=== PATIENT | female | born 1945 | race Caucasian/White ===

== ENCOUNTER → 2017-07-27 | Outpatient (CLI) | payer MEDICARE, OTHER | END | disposition home or self-care (01) | LOC: MAMMO 08:02 | DX: Z12.31 Encounter for screening mammogram for malignant neoplasm of breast (principal) | CPT/HCPCS: 77067 ==

== ENCOUNTER → 2017-08-07 | Outpatient (CLI) | payer MEDICARE, OTHER ==
[2017-08-07 09:31] LABS: ADD MAN DIFF? NO
[2017-08-07 09:37] LABS: BASO % 1 % (0-3); EOS # 0.2 x10^3/uL (0.0-0.7); EOS % 4 % (0-3); HEMATOCRIT 36.7 % (36.0-47.0); HEMOGLOBIN 12.1 g/dL (12.0-15.5); LYMPH # 0.8 x10^3/uL (1.0-4.8); LYMPH % 23 % (24-48); MEAN CORPUSCULAR HEMOGLOBIN 31 pg (25-35); MEAN CORPUSCULAR HGB CONC 33 g/dL (31-37); MEAN CORPUSCULAR VOLUME 96 fL (79-100); MONO # 0.4 x10^3/uL (0.0-1.1); MONO % 12 % (0-9); NEUT # 2.3 x10^3uL (1.8-7.7); NEUT % 61 % (31-73); PLATELET COUNT 174 x10^3/uL (140-400); RED BLOOD COUNT 3.84 x10^6/uL (3.50-5.40); RED CELL DISTRIBUTION WIDTH 14.2 % (11.5-14.5); WHITE BLOOD COUNT 3.7 x10^3/uL (4.0-11.0)
[2017-08-07 09:48] LABS: ALBUMIN 3.5 g/dL (3.4-5.0); ANION GAP 4 (6-14); BLOOD UREA NITROGEN 23 mg/dL (7-20); CARBON DIOXIDE 30 mmol/L (21-32); CHLORIDE 106 mmol/L (98-107); CREATININE 0.6 mg/dL (0.6-1.0); GFR 98.5; GLUCOSE 82 mg/dL (70-99); POTASSIUM 4.7 mmol/L (3.5-5.1); SODIUM 140 mmol/L (136-145)
[2017-08-07 09:51] LABS: AMORPHOUS SEDIMENT,UR PRESENT /HPF; BACTERIA,URINE 0 /HPF (0-FEW); BILIRUBIN,URINE NEGATIVE (NEG); CLARITY,URINE CLOUDY; COLOR,URINE YELLOW; GLUCOSE,URINE NEGATIVE (NEG); NITRITE,URINE NEGATIVE (NEG); PARTIAL THROMBOPLASTIN TIME 25 SEC (24-38); PH,URINE 7.5; PROTEIN,URINE NEGATIVE (NEG-TRACE); PROTHROMBIN TIME PATIENT 12.4 SEC (11.7-14.0); RBC,URINE 0 /HPF (0-2); SQUAMOUS EPITHELIAL CELL,UR OCC /LPF; UROBILINOGEN,URINE 0.2 mg/dL (0.2 mg/dL); WBC,URINE 0 /HPF (0-4)
[2017-08-07 11:00] LABS: SEDIMENTATION RATE 18 (0-25)
[2017-08-08 00:12] LABS: MRSA BY PCR Negative (Negative)
== END | disposition home or self-care (01) ==
LOC: SURGPAT 13:58
DX: Z01.818 Encounter for other preprocedural examination (principal); I10 Essential (primary) hypertension
CPT/HCPCS: 36415; 71046; 80048; 81001; 82040; 82306; 85025; 85610; 85651; 85730; 87641; 93005

== ENCOUNTER 2017-08-22 05:33 | Inpatient (IN) | payer MEDICARE, OTHER ==
[2017-08-22] MEDS: MORPHINE SULFATE 5 MG, KETOROLAC 30 MG, ROPIVacaine 0.5% PF 60 ML, EPINEPHrine 0.5 MG i... INT ART (06:00)
[2017-08-22] MEDS ORDERED: HYDROcodone/APAP 7.5/325MG 1 TAB TABLET (06:25)
[2017-08-22] MEDS: IV RINGERS,LACTATED 1000ML 1,000 ML IV (06:34)
[2017-08-22] MEDS: HYDROcodone/APAP 7.5/325MG 1 TAB TABLET PO ×4 (06:40→23:03)
[2017-08-22 06:41] LABS: HEMATOCRIT 37.7 % (36.0-47.0); HEMOGLOBIN 12.4 g/dL (12.0-15.5); MEAN CORPUSCULAR HGB CONC 33 g/dL (31-37)
[2017-08-22] MEDS ORDERED: PROPOFOL 20 ML IV (06:51)
[2017-08-22] MEDS ORDERED: LIDOCAINE 2% PF Vial for OR 5 ML VIAL. (06:51)
[2017-08-22] MEDS ORDERED: fentaNYL PF VIAL 100 MCG/2 ML VIAL (06:51)
[2017-08-22] MEDS ORDERED: ONDANSETRON PF 4 MG/2 ML VIAL. (06:51)
[2017-08-22] MEDS ORDERED: DEXAMETHASONE SOD PHOS 20 MG/5 ML VIAL. (06:51)
[2017-08-22] MEDS ORDERED: ROCURONIUM 50 MG/5 ML VIAL. (06:51)
[2017-08-22] MEDS ORDERED: FAMOTIDINE 20 MG/2 ML VIAL (06:58)
[2017-08-22] MEDS ORDERED: HYDROmorphone 2 MG/ML VIAL IV (07:00)
[2017-08-22] MEDS ORDERED: fentaNYL PF VIAL 100 MCG/2 ML VIAL IV ×3 (07:00→10:00)
[2017-08-22] MEDS ORDERED: LIDOCAINE 1% PF 2 ML VIAL. ID (07:00)
[2017-08-22] MEDS ORDERED: ONDANSETRON PF 4 MG/2 ML VIAL. IV (07:00)
[2017-08-22] MEDS ORDERED: MIDAZOLAM HCL/PF 2 MG/2 ML VIAL. (07:14)
[2017-08-22] MEDS: TRANEXAMIC ACID 1,000 MG in IV NORMAL SALINE 50ML 50 ML INJ ×2 (08:00)
[2017-08-22] MEDS ORDERED: PHENYLEPHRINE in 0.9% NACL PF 1 MG/10 ML SYRINGE. IV (08:01)
[2017-08-22] MEDS ORDERED: ePHEDrine PF IN SALINE 50 MG/5 ML DISP.SYRIN IV (08:07)
[2017-08-22] MEDS: TOBRAMYCIN POWDER 1.2 GM VIAL. (08:19)
[2017-08-22] MEDS: VANCOMYCIN 1 GM VIAL. (08:19)
[2017-08-22] MEDS ORDERED: diphenhydrAMINE 50 MG/ML VIAL (08:49)
[2017-08-22] MEDS ORDERED: NEOSTIGMINE METHYLSULFATE 5 MG/5 ML SYRINGE. (09:08)
[2017-08-22] MEDS ORDERED: GLYCOPYRROLATE 1 MG/5 ML VIAL. (09:08)
[2017-08-22] MEDS ORDERED: SEVOFLURANE 61 TO 120 MINUTES. IH (09:31)
[2017-08-22] MEDS: PROCHLORPERAZINE 10 MG/2 ML VIAL. IV (09:58)
[2017-08-22] MEDS: fentaNYL PF VIAL 100 MCG/2 ML VIAL IV ×2 (09:59→10:10)
[2017-08-22] MEDS ORDERED: CALCIUM CARBONATE 500 MG TAB.CHEW PO (10:00)
[2017-08-22] MEDS ORDERED: HYDROcodone/APAP 10/325 1 TAB TABLET PO (10:00)
[2017-08-22] MEDS ORDERED: DEXTROSE 50% 25 GM / 50ML DISP.SYRIN. IV (10:00)
[2017-08-22] MEDS ORDERED: PROCHLORPERAZINE 10 MG/2 ML VIAL. IV (10:00)
[2017-08-22] MEDS ORDERED: PROCHLORPERAZINE 5 MG TABLET. PO (10:00)
[2017-08-22] MEDS ORDERED: oxyCODONE/APAP 5/325 1 TAB TABLET PO (10:00)
[2017-08-22] MEDS ORDERED: diphenhydrAMINE 50 MG/ML VIAL IV (10:00)
[2017-08-22] MEDS ORDERED: NON FORMULARY ITEM (Denosumab (Prolia) 60 MG) SQ (10:00)
[2017-08-22] MEDS ORDERED: MORPHINE SULFATE 2 MG/ML DISP.SYRIN. IV (10:00)
[2017-08-22] MEDS ORDERED: METOCLOPRAMIDE HCL 10 MG/2 ML VIAL. IV (10:00)
[2017-08-22] MEDS ORDERED: ZOLPIDEM 5 MG TABLET. PO (10:00)
[2017-08-22] MEDS ORDERED: MORPHINE SULFATE 4 MG/ML DISP.SYRIN. IV ×2 (10:00)
[2017-08-22] MEDS ORDERED: 0.9 % SODIUM CHLORIDE 10 ML DISP.SYRIN. IV (10:00)
[2017-08-22] MEDS ORDERED: ACETAMINOPHEN 325 MG TABLET. PO (10:00)
[2017-08-22] MEDS ORDERED: traMADol 50 MG TABLET PO ×2 (10:00)
[2017-08-22] MEDS ORDERED: oxyCODONE/APAP 7.5/325 1 TAB TABLET PO (10:00)
[2017-08-22] MEDS ORDERED: MORPHINE SULFATE 10 MG/ML VIAL. IV (10:00)
[2017-08-22] MEDS: MORPHINE SULFATE 2 MG/ML DISP.SYRIN. IV ×2 (10:36→10:51)
[2017-08-22] MEDS ORDERED: ceFAZolin SODIUM IV Push 1 GM VIAL. IVP (11:15)
[2017-08-22] MEDS: IV DEXTROSE 5 %-0.45 % NACL 1,000 ML IV ×2 (12:22→23:03)
[2017-08-22] MEDS: LISINOPRIL 20 MG TABLET PO (13:21)
[2017-08-22] MEDS: amLODIPine BESYLATE 10 MG TABLET PO (13:22)
[2017-08-22] MEDS: SENNOSIDES/DOCUSATE 8.6/50MG TABLET. PO (14:00)
[2017-08-22] MEDS: CHOLECALCIFEROL (VITAMIN D3) 1,000 UNIT TABLET PO (14:00)
[2017-08-22] MEDS: MULTIVITAMIN with MINERAL TABLET. PO (14:00)
[2017-08-22] MEDS: CALCIUM CARB/VIT D3 500/200 TABLET. PO (14:00)
[2017-08-22] MEDS: FERROUS SULFATE 325 MG TABLET. PO (16:59)
[2017-08-22] MEDS: KETOROLAC 30 MG, BUPIVACAINE MPF 0.25% 20 ML, EPINEPHrine 0.5 MG in TOTAL VOLUME SYRING... INT ART (17:33)
[2017-08-22] MEDS: CELECOXIB 200 MG CAPSULE. PO (21:05)
[2017-08-22] MEDS: ASPIRIN ENTERIC COATED 325 MG TABLET.DR. PO (21:05)
[2017-08-23] MEDS: HYDROcodone/APAP 7.5/325MG 1 TAB TABLET PO ×5 (03:40→20:12)
[2017-08-23] MEDS: IV DEXTROSE 5 %-0.45 % NACL 1,000 ML IV (03:42)
[2017-08-23 05:58] LABS: HEMATOCRIT 27.6 % (36.0-47.0); HEMOGLOBIN 9.2 g/dL (12.0-15.5); MEAN CORPUSCULAR HEMOGLOBIN 32 pg (25-35); MEAN CORPUSCULAR HGB CONC 33 g/dL (31-37); MEAN CORPUSCULAR VOLUME 97 fL (79-100); PLATELET COUNT 134 x10^3/uL (140-400); RED BLOOD COUNT 2.84 x10^6/uL (3.50-5.40); RED CELL DISTRIBUTION WIDTH 14.5 % (11.5-14.5); WHITE BLOOD COUNT 8.6 x10^3/uL (4.0-11.0)
[2017-08-23] MEDS ORDERED: MAGNESIUM HYDROXIDE 2,400 MG/30 ML ORAL.SUSP. PO (06:00)
[2017-08-23] MEDS: KETOROLAC 30 MG, BUPIVACAINE MPF 0.25% 20 ML, EPINEPHrine 0.5 MG in TOTAL VOLUME SYRING... INT ART (06:00)
[2017-08-23] MEDS: CELECOXIB 200 MG CAPSULE. PO ×2 (07:57→20:55)
[2017-08-23] MEDS: MULTIVITAMIN with MINERAL TABLET. PO (07:57)
[2017-08-23] MEDS: CHOLECALCIFEROL (VITAMIN D3) 1,000 UNIT TABLET PO (07:57)
[2017-08-23] MEDS: SENNOSIDES/DOCUSATE 8.6/50MG TABLET. PO (07:57)
[2017-08-23] MEDS: ASPIRIN ENTERIC COATED 325 MG TABLET.DR. PO ×2 (07:58→20:55)
[2017-08-23] MEDS: FERROUS SULFATE 325 MG TABLET. PO ×2 (07:58→16:53)
[2017-08-23] MEDS: CALCIUM CARB/VIT D3 500/200 TABLET. PO (07:58)
[2017-08-23] MEDS: amLODIPine BESYLATE 10 MG TABLET PO (07:58)
[2017-08-23] MEDS: LISINOPRIL 20 MG TABLET PO (09:00)
[2017-08-23] MEDS ORDERED: BISACODYL 10 MG SUPP.RECT. PR (16:00)
[2017-08-24] MEDS: HYDROcodone/APAP 7.5/325MG 1 TAB TABLET PO ×5 (00:56→20:49)
[2017-08-24 05:24] LABS: HEMATOCRIT 25.4 % (36.0-47.0); HEMOGLOBIN 8.6 g/dL (12.0-15.5); MEAN CORPUSCULAR HGB CONC 34 g/dL (31-37)
[2017-08-24] MEDS: LISINOPRIL 20 MG TABLET PO (08:00)
[2017-08-24] MEDS: amLODIPine BESYLATE 10 MG TABLET PO (08:00)
[2017-08-24] MEDS: CHOLECALCIFEROL (VITAMIN D3) 1,000 UNIT TABLET PO (08:06)
[2017-08-24] MEDS: CELECOXIB 200 MG CAPSULE. PO ×2 (08:06→20:49)
[2017-08-24] MEDS: CALCIUM CARB/VIT D3 500/200 TABLET. PO (08:06)
[2017-08-24] MEDS: FERROUS SULFATE 325 MG TABLET. PO ×2 (08:06→17:04)
[2017-08-24] MEDS: SENNOSIDES/DOCUSATE 8.6/50MG TABLET. PO (08:07)
[2017-08-24] MEDS: ASPIRIN ENTERIC COATED 325 MG TABLET.DR. PO ×2 (08:07→20:48)
[2017-08-24] MEDS: MULTIVITAMIN with MINERAL TABLET. PO (08:08)
[2017-08-24] MEDS: MAGNESIUM HYDROXIDE 2,400 MG/30 ML ORAL.SUSP. PO (15:10)
[2017-08-25] MEDS: HYDROcodone/APAP 7.5/325MG 1 TAB TABLET PO ×3 (02:50→11:59)
[2017-08-25] MEDS: FERROUS SULFATE 325 MG TABLET. PO (08:03)
[2017-08-25] MEDS: CALCIUM CARB/VIT D3 500/200 TABLET. PO (08:03)
[2017-08-25] MEDS: CELECOXIB 200 MG CAPSULE. PO (08:37)
[2017-08-25] MEDS: MULTIVITAMIN with MINERAL TABLET. PO (08:38)
[2017-08-25] MEDS: ASPIRIN ENTERIC COATED 325 MG TABLET.DR. PO (08:38)
[2017-08-25] MEDS: SENNOSIDES/DOCUSATE 8.6/50MG TABLET. PO (08:38)
[2017-08-25] MEDS: CHOLECALCIFEROL (VITAMIN D3) 1,000 UNIT TABLET PO (08:38)
[2017-08-25] MEDS: amLODIPine BESYLATE 10 MG TABLET PO (08:40)
[2017-08-25] MEDS: LISINOPRIL 20 MG TABLET PO (08:41)
[2017-08-25 11:15] LABS: HEMATOCRIT 28.9 % (36.0-47.0); HEMOGLOBIN 9.7 g/dL (12.0-15.5); MEAN CORPUSCULAR HGB CONC 34 g/dL (31-37)
== END 2017-08-25 14:20 | DRG 470 ==
LOC: OPSVCIP 05:33 → 4 SOUTHEST 10:59
PROC: 0SRD0J9 Replacement of Left Knee Joint with Synthetic Substitute, Cemented, Open Approach (ICD-10-PCS; principal; 2017-08-22 07:10)
DX: M17.12 Unilateral primary osteoarthritis, left knee (principal); I10 Essential (primary) hypertension; Z90.710 Acquired absence of both cervix and uterus
CPT/HCPCS: 36415; 73560; 73700; 85014; 85018; 85027; 86850; 86900; 86901; 88305; 88311; 97110-GO; 97110-GP; 97116-GP; 97150-GP; 97162-GP; 97166-GO; 97530-GO; 97530-GP; 97535-GO; C1713; J0171; J0690; J0780; J1100; J1200; J1885; J2250; J2270; J2370; J2405; J2704; J2710; J2795; J3010; J3260; J3370; J3490; J7030; J7120; S0028

== ENCOUNTER → 2018-09-18 | Outpatient (CLI) | payer MEDICARE, OTHER ==
[2017-08-25 13:18] VITALS: BP 126/64
[~2018-09-18] MED LIST: AMLO10TA4 PO; ASPI-482 PO; CALC-98 PO; CHOL100013 PO; DENO60DI SQ; FERR325T14 PO; HYDR-3165 PO; IBUP200T58 PO; LISI-334 PO; MULT-460 PO
--- NOTE | 2018-09-18 10:02 | RAD ---
DATE: 09/18/2018 EXAM: MAMMO SLICK SCREENING BILATERAL HISTORY: Routine screening COMPARISON: 07/27/2017 This study was interpreted with the benefit of Computerized Aided Detection (CAD). Breast Density: HETERO The breast parenchyma is heterogenously dense, which could reduce sensitivity of mammography. Breast parenchyma level C. FINDINGS: 2-D and 3-D tomosynthesis imaging was performed in CC and MLO projections. No new or enlarging breast densities are seen. Benign type calcifications are present. No suspicious microcalcifications have developed. IMPRESSION: Stable mammograms without evidence of malignancy. BI-RADS CATEGORY: 2 BENIGN FINDING(S) RECOMMENDED FOLLOW-UP: 12M 12 MONTH FOLLOW-UP PQRS compliance statement: Patient information was entered into a reminder system with a target due date for the next mammogram. Mammography is a sensitive method for finding small breast cancers, but it does not detect them all and is not a substitute for careful clinical examination. A negative mammogram does not negate a clinically suspicious finding and should not result in delay in biopsying a clinically suspicious abnormality. "Our facility is accredited by the [employer] Mammography [employer]."
== END | disposition home or self-care (01) ==
LOC: MAMMO 09:03
PROVIDERS: ATTEND Family Medicine
DX: Z12.31 Encounter for screening mammogram for malignant neoplasm of breast (principal)
CPT/HCPCS: 77063; 77067

== ENCOUNTER → 2019-11-11 | Outpatient (CLI) | payer MEDICARE, OTHER ==
[2017-08-25 13:18] VITALS: BP 126/64
--- NOTE | 2019-11-12 08:29 | RAD ---
History: Routine screening. Technique: Bilateral digital mammographic routine views were obtained with CAD - computer aided detection. Comparison: 09/18/2018, 07/27/2017 and 07/05/2016. Findings: Breast Tissue Density C : The breast tissue is heterogeneously dense. Scattered fibroglandular elements may obscure underlying pathology. There are no suspicious masses, microcalcifications or areas of architectural distortion. Impression: No suspicious findings. BI-RADS Category 1: Negative. Normal interval followup. Your mammogram demonstrates that you have dense breast tissue, which could hide abnormalities, and if you have other risk factors for breast cancer that have been identified, you might benefit from supplemental screening tests that may be suggested by your ordering physician. Dense breast tissue, in and of itself, is a relatively common condition. This information is not provided to cause undue concern, but rather to raise your awareness and to promote discussion with your physician regarding the presence of other risk factors, in addition to dense breast tissue. A report of your mammography results will be sent to you and your physician. You should contact your physician if you have any questions or concerns regarding this report. A mammogram does not have 100% sensitivity and therefore a negative imaging study should not delay further work up of a suspicious abnormality. The patient will receive a letter with the results in the mail. Patient information is entered into the reminder system with a target due date for the next screening mammogram. The patient will receive a reminder. "Our facility is accredited by the [employer]ammography [employer]." BI-RADS 1 -- negative findings (within normal)
== END | disposition home or self-care (01) ==
LOC: MAMMO 15:39
PROVIDERS: ATTEND Family Medicine
DX: Z12.31 Encounter for screening mammogram for malignant neoplasm of breast (principal)
CPT/HCPCS: 77067

== ENCOUNTER → 2020-11-12 | Outpatient (CLI) | payer MEDICARE, OTHER ==
[2017-08-25 13:18] VITALS: BP 126/64
[~2020-11-12] MED LIST changes: -LISI-334 PO; +LISI20TA18 PO
--- NOTE | 2020-11-13 17:39 | RAD ---
DATE: 11/12/2020 EXAM: MAMMO SLICK SCREENING BILATERAL HISTORY: Screening COMPARISON: 09/26/2014, 07/05/2016, 29/08/2017, 09/18/2018, 11/11/2019 This study was interpreted with the benefit of Computerized Aided Detection (CAD). Breast Density: HETERO The breast parenchyma is heterogenously dense, which could reduce sensitivity of mammography. Breast parenchyma level C. FINDINGS: No mass, suspicious calcification, or architectural distortion in either breast. IMPRESSION: No evidence of malignancy. BI-RADS CATEGORY: 1 NEGATIVE RECOMMENDED FOLLOW-UP: 12M 12 MONTH FOLLOW-UP PQRS compliance statement: Patient information was entered into a reminder system with a target due date for the next mammogram. Mammography is a sensitive method for finding small breast cancers, but it does not detect them all and is not a substitute for careful clinical examination. A negative mammogram does not negate a clinically suspicious finding and should not result in delay in biopsying a clinically suspicious abnormality. "Our facility is accredited by the [employer] Mammography [employer]."
== END ==
LOC: MAMMO 14:19
PROVIDERS: ATTEND Family Medicine
DX: Z12.31 Encounter for screening mammogram for malignant neoplasm of breast (principal)
CPT/HCPCS: 77063; 77067